=== PATIENT | female | born 1970 | race Caucasian/White ===

== ENCOUNTER → 2023-08-13 16:33 | Outpatient (REF) | payer BC, SELFPAY | LOC: WDC 16:33 | PROVIDERS: ATTENDING PHYSICIAN Physician Assistant Medical | DX: Z12.31 Encounter for screening mammogram for malignant neoplasm of breast (principal) | CPT/HCPCS: 77063; 77067 ==

== ENCOUNTER → 2024-12-02 17:57 | Outpatient (REF) | payer BC, SELFPAY | LOC: WDC 17:57 | PROVIDERS: ATTENDING PHYSICIAN Nurse Practitioner Family; FAMILY PHYSICIAN Physician Assistant Medical | DX: Z12.31 Encounter for screening mammogram for malignant neoplasm of breast (principal) | CPT/HCPCS: 77063; 77067 ==

== ENCOUNTER → 2025-01-15 11:18 | Outpatient (REF) | payer BC, SELFPAY | LOC: RAD 11:18 | PROVIDERS: ATTENDING PHYSICIAN Specialist; FAMILY PHYSICIAN Physician Assistant Medical | DX: N20.0 Calculus of kidney (principal) | CPT/HCPCS: 74176 ==